=== PATIENT | female | born 1935 | race Caucasian/White ===

== ENCOUNTER 2017-01-17 12:46 | Emergency (ER) | payer MEDICARE ==
[~2017-01-17] VITALS: Ht 154.9 cm; Wt 74.5 kg
[2017-01-17 13:23] LABS: BASOPHILS % (AUTO) 1 % (0-2); EOSINOPHILS # (AUTO) 0.1 10^3uL; EOSINOPHILS % (AUTO) 1 % (0-4); LYMPHOCYTES # (AUTO) 1.6 X10^3; MEAN CORPUSCULAR HGB CONC 32.8 g/dL (31.0-37.0); MEAN PLATELET VOLUME 10.4 FL (6.0-9.5); MONOCYTES # (AUTO) 0.8 X10^3; MONOCYTES % (AUTO) 12 % (3-11); NEUTROPHILS # (AUTO) 4.1 X10^3; NEUTROPHILS % (AUTO) 62 % (51-67); PLATELET COUNT 230 10^3uL (150-450); WHITE BLOOD COUNT 6.54 10^3uL (4.0-11.0)
[2017-01-17 13:27] LABS: MEAN CORPUSCULAR HEMOGLOBIN 22.4 PG (26.0-34.0); MEAN CORPUSCULAR VOLUME 68 FL (80-100)
[2017-01-17 13:31] LABS: BILIRUBIN,URINE Negative (Negative); CLARITY,URINE Clear; COLOR,URINE Yellow; GLUCOSE, URINE (UA) Negative (Negative); LEUKOCYTE ESTERASE ,URINE Negative (Negative); UROBILINOGEN,URINE 0.2 mg/dL (0.2-1.0)
[2017-01-17 13:33] LABS: ALKALINE PHOSPHATASE 61 U/L (38-126); ANION GAP 11.2 MEQ/L (3-15); BUN/CREATININE RATIO 22 (10-20); CALCULATED IONIZED CALCIUM 4.1 mg/dL (3.8-4.6); CREATINE KINASE 24 U/L (30-135); TOTAL PROTEIN 6.8 g/dL (6.4-8.5)
[2017-01-17] MEDS ORDERED: SODIUM CHLORIDE FLUSH 10 ML SYR IV PRN (14:15)
[2017-01-17] MEDS ORDERED: MECLIZINE 12.5 MG PO ONE (14:25)
[2017-01-17 14:44] VITALS: BP 95/69
== END 2017-01-17 14:58 | disposition home or self-care (01) ==
LOC: ED 12:48
DX: M94.0 Chondrocostal junction syndrome [Tietze] (principal); J06.9 Acute upper respiratory infection, unspecified; H81.10 Benign paroxysmal vertigo, unspecified ear; F41.9 Anxiety disorder, unspecified; F17.200 Nicotine dependence, unspecified, uncomplicated
CPT/HCPCS: 36415; 71010; 80053; 81003; 82550; 82553; 83880; 84443; 84484; 85025; 85379; 93005; 99285; A9270; 93010

== ENCOUNTER → 2017-01-17 | Outpatient (CLI) | payer MEDICARE ==
[2017-01-17 13:04] VITALS: BP 138/82
== END ==
LOC: MHUC 12:21
PROVIDERS: ATTEND Physician Assistant
DX: R06.02 Shortness of breath (principal)

== ENCOUNTER → 2017-01-26 | Outpatient (CLI) | payer MEDICARE ==
[~2017-01-26] VITALS: Ht 154.9 cm; Wt 81.2 kg
[~2017-01-26] MED LIST: NS FLUSH 10 ML PRN IV; NS FLUSH 3 ML PRN IV
[2017-01-26 08:30] VITALS: BP 121/70
--- NOTE | 2017-01-26 09:53 | NUR ---
PT DISCHARGED TO RADIOLOGY PER WC WITH IV INTACT & PATENT FOR CTA. RADIOLOGY WILL DC IV SITE WHEN THEY ARE DONE. CL
== END ==
LOC: EUOP 08:18
PROVIDERS: ATTEND Family Medicine
DX: R07.89 Other chest pain (principal); R79.89 Other specified abnormal findings of blood chemistry
CPT/HCPCS: 36000; J7030; 96360

== ENCOUNTER → 2017-01-26 | Outpatient (CLI) | payer MEDICARE | LOC: RAD 08:12 | PROVIDERS: ATTEND Family Medicine | DX: R07.89 Other chest pain (principal); R78.89 Finding of other specified substances, not normally found in blood; J43.8 Other emphysema; R91.1 Solitary pulmonary nodule | CPT/HCPCS: 71275; Q9967 ==